=== PATIENT | female | born 2000 | race Caucasian/White ===

== ENCOUNTER 2022-02-01 08:27 | Emergency (ER) | payer OTHER ==
[~2022-02-01] VITALS: Ht 154 cm; Wt 69.0 kg
--- NOTE | 2022-02-01 09:14 | ED Headache ---
General Chief Complaint: Head/Cervical Problems Stated Complaint: HEADACHE Nursing Triage Note: PT CO OF PAIN ON L SIDE OF HEAD/NECK, STATES WOKE UP W PAIN 9/10, STATES WORSE TO TURN HER HEAD, PT TEARFUL, PT STATES GETTING READY TO CATCH FLIGHT FOR SPRING BREAK. Source: patient Exam Limitations: no limitations (ROBY SKELTON STUDENT) History of Present Illness Date Seen by Provider: Feb 01, 2022 Time Seen by Provider: 09:00 Initial Comments Patient presents to the ED and reports that at 0530 today she was awakened from sleep with pain in the back of her head on the left side. Reports that the pain was a 9/10 initially and was constant. She has never had pain like this before. Did not take anything for the pain. States turning her head to the left worsens the pain and palpating the back left side of her head worsens the pain as well. She has no significant pmh other than occasion headaches, which are different that this pain. The pain does not radiate anywhere. She's currently rating the pain an 8/10 and is tearful. She denies blurry vision, nausea, vomiting, dizziness, and numbness or tingling of the arms and shoulders. Timing/Duration: 4-6 hours Severity/Quality: severe, constant, pressure Location: occipital Prior Headaches/Recent Trauma: no recent headache/trauma Modifying Factors: improves with movement (to the left) Associated Symptoms: No fever/chills, No nausea/vomiting, No rash, No stiff neck, No vision changes (ROBY SKELTON STUDENT) Initial Comments Patient is a 21-year-old female presents with a chief complaint of occipital headache onset on awakening this morning on the left. Patient is not taking any medication for the pain. Has never had anything like this before. Denies trauma. States turning her head to the left increases her pain as does looking up. No fevers, chills URI symptoms. She denies any associated neurological symptoms such as speech difficulty vision changes numbness weakness or tingling in her extremities. Only allergies to penicillins. All other review of systems reviewed and negative except as stated (MILAGROS STRINGER MD) Allergies and Home Medications Allergies Coded Allergies: Penicillins (Verified Allergy, Unknown, 02/01/22) Review of Systems Review of Systems Constitutional: no symptoms reported; No chills, No diaphoresis, No fever Eyes: No Symptoms Reported; Denies Blurred Vision, Denies Decreased Acuity, Denies Photophobia, Denies Vision Changes Ears, Nose, Mouth, Throat: no symptoms reported; denies ear pain, denies ear discharge, denies nose discharge Respiratory: no symptoms reported; No cough, No short of breath Cardiovascular: no symptoms reported; No chest pain, No edema, No palpitations Gastrointestinal: No abdominal pain, No constipation, No diarrhea Genitourinary: no symptoms reported; No decreased output, No dysuria, No frequency LMP: Jan 27, 2022 Musculoskeletal: no symptoms reported; No back pain, No joint pain, No joint swelling, No neck pain Skin: no symptoms reported; No change in color, No change in hair/nails Psychiatric/Neurological: No Symptoms Reported; Denies Anxiety, Denies Depressed (FLAVIO SKELTONTOPSEC STUDENT) All Other Systems Reviewed Negative Unless Noted: Yes (FLAVIO SKELTONTOPSEC STUDENT) Past Wskpgdr-Ksvxcy-Lvzijr Hx Patient Social History Tobacco Use?: No Smoking Status: Never a Smoker Smokeless Tobacco Frequency: Never a User Use of E-Cig and/or Vaping dev: No Use of E-Cig and/or Vaping Umang: Never a User Substance use?: No Alcohol Use?: Yes Alcohol Frequency: Once in a while (FLAVIO SKELTONTOPSEC STUDENT) Immunizations Up To Date First/Initial COVID19 Vaccinat: 2020 Second COVID19 Vaccination Casey: 2020 ([employer]) Seasonal Allergies Seasonal Allergies: Yes (FLAVIO SKELTONTOPSEC STUDENT) Past Medical History Surgeries: No Respiratory: No Currently Using CPAP: No Currently Using BIPAP: No Cardiac: No Neurological: Yes Headaches /Migraines Last Menstrual Period: Jan 27, 2022 Reproductive Disorders: No Genitourinary: No Gastrointestinal: No Musculoskeletal: No Endocrine: No HEENT: No Loss of Vision: Denies Hearing Impairment: Denies Cancer: No Psychosocial: No Integumentary: No Blood Disorders: No ([employer] STUDENT) Physical Exam Vital Signs Vital Signs - First Documented 02/01/22 08:35 Temp 36.4 Pulse 77 Resp 18 B/P (MAP) 140/94 (109) Pulse Ox 100 (MILAGROS STRINGER MD) Vital Signs Capillary Refill : Less Than 3 Seconds ([employer] STUDENT) Height, Weight, BMI Height: '" Weight: lbs. oz. kg; 29.00 BMI Method: General Appearance: WD/WN, no apparent distress HEENT: PERRL/EOMI, pharynx normal, other (Posterolateral left occiput point tenderness, doesn't radiate. Reproducible by palpation. No obvious lesions or rash noted around site of tenderness. ) Neck: non-tender, full range of motion, supple, normal inspection Cardiovascular: normal peripheral pulses, no edema, no murmur Respiratory: chest non-tender, lungs clear, normal breath sounds Gastrointestinal: normal bowel sounds, non tender, soft Back: normal inspection, no vertebral tenderness Extremities: normal range of motion, non-tender, no pedal edema, no calf tenderness Psychiatric: alert, oriented x 3 Crainal Nerves: normal hearing, normal speech, PERRL Coordination/Gait: normal gait Motor/Sensory: no motor deficit, no sensory deficit, no pronator drift Skin: normal color, warm/dry Lymphatic: no adenopathy (Head and Neck) ([employer] MED STUDENT) HEENT: other (Exquisitely tender to palpation left occiput, no overlying redness, fluctuance or lesions. Palpation directly intensifies and worsens her pain.) Crainal Nerves: normal hearing, normal speech, PERRL Coordination/Gait: normal gait Motor/Sensory: no motor deficit, no sensory deficit Skin: normal color, warm/dry (MILAGROS STRINGER MD) Progress/Results/Core Measures Results/Orders My Orders Orders - MILAGROS STRINGER MD Bupivacaine 0.5% Injection (Sensorcaine (02/01/22 09:30) Lidocaine 1% Inj 50 Ml (Xylocaine 1% Inj (02/01/22 09:30) Lidocaine 1% Inj 50 Ml (Xylocaine 1% Inj (02/01/22 09:20) Ketorolac Injection (Toradol Injection) (02/01/22 09:45) Orphenadrine Inj (Ed Only) (Norflex Inje (02/01/22 09:45) Hydrocodone/Apap 5/325 Tablet (Lortab 5 (02/01/22 09:45) (MILAGROS STRINGER MD) Medications Given in ED Current Medications Medications Dose Ordered Sig/Singh Route Start Time Stop Time Status Last Admin Dose Admin Acetaminophen/ Hydrocodone Bitart 1 ea ONCE ONCE PO 02/01/22 09:45 02/01/22 09:46 DC 02/01/22 09:46 1 EA Bupivacaine HCl 30 ml ONCE ONCE INJ 02/01/22 09:30 02/01/22 09:31 DC 02/01/22 09:22 30 ML Ketorolac Tromethamine 60 mg ONCE ONCE IM 02/01/22 09:45 02/01/22 09:46 DC 02/01/22 09:46 60 MG Lidocaine HCl 50 ml ONCE ONCE IJ 02/01/22 09:30 02/01/22 09:31 DC 02/01/22 09:22 50 ML Orphenadrine Citrate 60 mg ONCE ONCE IM 02/01/22 09:45 02/01/22 09:46 DC 02/01/22 09:46 60 MG (MILAGROS STRINGER MD) Vital Signs/I&O 02/01/22 08:35 Temp 36.4 Pulse 77 Resp 18 B/P (MAP) 140/94 (109) Pulse Ox 100 (MILAGROS STRINGER MD) Blood Pressure Mean: 109 Progress Progress Note : Time: 09:59 Progress Note Attempted trigger point injection at the left suboccipital region with 1% lidocaine and half percent bupivacaine 2 mL each. Total of 3 mL was infiltrated to the area. Patient was allowed to rest for a few minutes after the injection and states she had minimal relief of symptoms. Still quite tearful. Gave her injections of Toradol and Norflex with the p.o. hydrocodone. Recommend NSAIDs lots of fluids, caffeine, ice packs. No clinical or objective findings to warrant further studies from the emergency department at this time. (MILAGROS STRINGER MD) Departure Impression Primary Impression: Cervico-occipital neuralgia of left side Disposition: 01 HOME, SELF-CARE Condition: Improved Departure-Patient Inst. Decision time for Depature: 10:01 (MILAGROS STRINGER MD) Referrals: NO,LOCAL PHYSICIAN (PCP/Family) Primary Care Physician Patient Instructions: Headache, Adult ED Add. Discharge Instructions: Drink lots of fluids today to stay well-hydrated. You can also try increasing your caffeine intake. [id number] ibuprofen 3 tablets which is 600 mg every 6-8 hours with food as needed for headache pain. You can alternate with extra strength Excedrin every 6 hours. Ice packs to the back of the left side of the head 20 min at a time 3-4 times today. Gentle stretching may also help. Return to the emergency room for reevaluation for any worsening or new, emergent concerns.. ROBY SKELTON MED STUDENT Feb 01, 2022 09:14 MILAGROS STRINGER MD Feb 01, 2022 10:03
[2022-02-01] MEDS ORDERED: LIDOCAINE 1% INJ 50 ML (XYLOCAINE) VIAL ONE (09:20)
[2022-02-01] MEDS ORDERED: BUPIVACAINE 0.5% 30 ML (SENSORCAINE) VIAL INJ ONE (09:30)
[2022-02-01] MEDS ORDERED: LIDOCAINE 1% INJ 50 ML (XYLOCAINE) VIAL IJ ONE (09:30)
[2022-02-01] MEDS ORDERED: ORPHENADRINE 60 MG/2 ML (NORFLEX) AMP (ED ONLY) IM ONE (09:45)
[2022-02-01] MEDS ORDERED: KETOROLAC 60 MG/2 ML VIAL IM ONE (09:45)
[2022-02-01] MEDS ORDERED: HYDROcodone/APAP 5 MG/325 MG (LORTAB) TAB PO ONE (09:45)
[2022-02-01 10:11] VITALS: BP 140/94
== END 2022-02-01 10:11 | disposition home or self-care (01) ==
LOC: ER 08:29
DX: M54.81 Occipital neuralgia (principal); Z88.0 Allergy status to penicillin
CPT/HCPCS: 99284